=== PATIENT | male | born 2000 | race American Indian/Alaskan Native ===

== ENCOUNTER 2018-11-18 09:58 | Emergency (ER) | payer SELFPAY ==
[2018-11-18 10:03] VITALS: BP 138/61
--- NOTE | 2018-11-18 10:15 | Emergency Department Report ---
ED Dysuria HPI - HPI Chief Complaint: Urogenital-Male Stated Complaint: STD Time Seen by Provider: 11/18/18 10:14 Duration: 2 Days Severity: Mild Symptoms: Dysuria: Yes, Frequency: No, Suprapubic Pain: No, Flank Pain: No, Fever: No, Hematuria: No, Abdominal Pain: No, Previous UTI's: No Other History: 18 YO COMES WITH DYSURIA AND PENILE DISCHARGE. ED Review of Systems ROS: Stated complaint: STD Other details as noted in HPI Comment: All other systems reviewed and negative ED Past Medical Hx - Past Medical History Previous Medical History?: No - Surgical History Past Surgical History?: No - Social History Smoking Status: Current Some Day Smoker Substance Use Type: Marijuana Dysuria Exam - Exam General: Vital signs noted. No distress. Alert and acting appropriately. Exam: Yes Moist Mucous Membranes, No CVA Tenderness, No Abdominal Tenderness, No Rigidity or Guarding ED Course Vital Signs 11/18/18 10:02 Temperature 97.8 F Pulse Rate 65 Respiratory 19 Rate Blood Pressure 138/61 [Left] O2 Sat by Pulse 97 Oximetry ED Medical Decision Making - Medical Decision Making CONCERN FOR STI PT HAS UNPROTECTED SEX EMPIRIC TREATMENT Vital Signs (72 hours) 11/18/18 10:02 Temperature 97.8 F Pulse Rate 65 Respiratory 19 Rate Blood Pressure 138/61 [Left] O2 Sat by Pulse 97 Oximetry Critical care attestation.: If time is entered above; I have spent that time in minutes in the direct care of this critically ill patient, excluding procedure time. ED Disposition Clinical Impression: Concern about STD in male without diagnosis Disposition: DC-01 TO HOME OR SELFCARE Is pt being admited?: No Does the pt Need Aspirin: No Condition: Stable Instructions: Safe Sex (ED) Additional Instructions: DIET TOLERATED MEDS ORDERED TODAY IN ER FOLLOW INSTRUCTIONS ON THE BOTTLE FOLLOW UP PCP WITHIN 48 HOURS TO ENSURE YOU ARE GETTING BETTER ACTIVITY TOLERATED MOTRIN OR TYLENOL FOR PAIN OR FEVER RETURN TO THE ER FOR WORSENING SYMPTOMS NOT RELIEVED BY YOUR MEDICATIONS. WE WILL CALL YOU WITH TEST RESULTS ALL PARTNERS NEED TO BE TREATED. Referrals: [facility] [Outside] - 3-5 Days Time of Disposition: 10:21
[2018-11-18] MEDS ORDERED: XYLOCAINE 1% MPF 5 mL INFILTRATI ONE (10:20)
[2018-11-18] MEDS ORDERED: ROCEPHIN IM ONE (10:20)
[2018-11-18] MEDS ORDERED: ZITHROMAX ONE (10:28)
[2018-11-18] MEDS: ZITHROMAX PO ONE ×2 (10:31→10:32)
[2018-11-18] MEDS ORDERED: ZITHROMAX PO ONE (10:32)
[2018-11-18 11:02] LABS: Bacteria,Urine 1+ /HPF (Negative); Bilirubin,Urine NEG (Negative); Blood,Urine SM (Negative); Color,Urine Yellow (Yellow); Mucus,Urine 3+ /HPF
[2018-11-18 11:03] LABS: WBC,Urine > 182.0 /HPF (0.0-6.0)
== END 2018-11-18 10:50 | disposition home or self-care (01) ==
LOC: ED 09:58
DX: R30.0 Dysuria (principal); F17.200 Nicotine dependence, unspecified, uncomplicated; F12.10 Cannabis abuse, uncomplicated; Z71.1 Person with feared health complaint in whom no diagnosis is made; Z91.018 Allergy to other foods
CPT/HCPCS: 81001; 87591; J0696; 96372

== ENCOUNTER 2019-04-21 01:14 | Emergency (ER) | payer SELFPAY ==
[2019-04-21 01:21] VITALS: BP 139/80
--- NOTE | 2019-04-21 01:41 | Emergency Department Report ---
Chief Complaint: Urogenital-Male Stated Complaint: CHECK FOR STD Time Seen by Provider: 04/21/19 01:34 - HPI History of Present Illness: This is a 18-year-old male nontoxic, well nourished in appearance, no acute signs of distress presents to the ED STD check. Denies any penile discharge. Stated he is asymptomatic. Patient stated that he went out partying and had a sexual intercourse without protection and is now is concerned and wants to be tested. Patient denies any testicular pain or swelling. Patient denies any penile ulcers or lesions. Patient denies any nausea, vomiting, chest pain, shortness of breathe, fever, chills, headache, back pain, numbness, tingling, stiff neck. Patient denies any urinary symptoms. Patient denies any allergies or PMH. - Exam Vital Signs: Vital Signs 04/21/19 04/21/19 01:17 01:21 Temperature 97.3 F L 97.3 F L Pulse Rate 67 62 Respiratory 18 18 Rate Blood Pressure 139/80 139/80 O2 Sat by Pulse 100 100 Oximetry Physical Exam: no abdominal pain. no back pain. no urinary symptoms. no discharge. MSE screening note: Focused history and physical exam performed. Due to findings the following was ordered: ED Medical Decision Making - Medical Decision Making This is a 18-year-old male that presents with nonmedical emergency. Patient is stable and was examined by me. Patient is asymptomatic and denies any symptoms. Patient states he just wants to be tested for STD. I will refer the patient [facility]. At time of discharge, the patient does not seem toxic or ill in appearance. No acute signs of distress noted. Patient agrees to discharge treatment plan of care. No further questions noted by the patient. ED Disposition for MSE Clinical Impression: Possible exposure to STD Disposition: Z-07 MED SCREENING EXAM-LEFT Is pt being admited?: No Does the pt Need Aspirin: No Condition: Stable Instructions: Safe Sex (ED) Additional Instructions: Follow-up with the referrals that you have been provided in this ED stay for STD testing. Referrals: PRIMARY CARE, [Referring] - 3-5 Days ELZA PATEL MD [Staff Physician] - 3-5 Days [facility] [Outside] - 3-5 Days [facility] [Outside] - 3-5 Days
== END 2019-04-21 01:55 | disposition left against medical advice (07) ==
LOC: ED 01:14
DX: Z20.2 Contact with and (suspected) exposure to infections with a predominantly sexual mode of transmission (principal)
CPT/HCPCS: 99281

== ENCOUNTER 2019-12-23 03:48 | Emergency (ER) | payer SELFPAY ==
--- NOTE | 2019-12-23 04:18 | Emergency Department Report ---
ED ENT HPI - General Chief complaint: Dental/Oral Stated complaint: MOUTH/PAIN Time Seen by Provider: 12/23/19 04:11 Source: patient Mode of arrival: Ambulatory Limitations: No Limitations - History of Present Illness MD complaint: tooth pain -: Gradual Location: tooth # Severity: mild, moderate Quality: dull Consistency: constant Improves with: none Worsens with: none Context- Dental: history of dental caries, poor dental care Associated Symptoms: toothache. denies: cough, gum swelling, discharge from ear, rhinorrhea - Related Data Previous Rx's Medication Instructions Recorded Last Taken Type Amoxicillin [Trimox CAP] 500 mg PO Q8H #14 capsule 12/23/19 Unknown Rx Chlorhexidine Mouthwash [Peridex] 15 ml MM BID #1 bottle 12/23/19 Unknown Rx Ketorolac [Toradol] 10 mg PO Q6H PRN #15 tablet 12/23/19 Unknown Rx Lidocaine Viscous 2% 5 ml MM Q3H PRN #120 udc 12/23/19 Unknown Rx Allergies Allergy/AdvReac Type Severity Reaction Status Date / Time green vegetables Allergy Rash Uncoded 11/18/18 09:59 ED Dental HPI - General Chief complaint: Dental/Oral Stated complaint: MOUTH/PAIN Time Seen by Provider: 12/23/19 04:11 Source: patient Mode of arrival: Ambulatory Limitations: No Limitations - Related Data Previous Rx's Medication Instructions Recorded Last Taken Type Amoxicillin [Trimox CAP] 500 mg PO Q8H #14 capsule 12/23/19 Unknown Rx Chlorhexidine Mouthwash [Peridex] 15 ml MM BID #1 bottle 12/23/19 Unknown Rx Ketorolac [Toradol] 10 mg PO Q6H PRN #15 tablet 12/23/19 Unknown Rx Lidocaine Viscous 2% 5 ml MM Q3H PRN #120 udc 12/23/19 Unknown Rx Allergies Allergy/AdvReac Type Severity Reaction Status Date / Time green vegetables Allergy Rash Uncoded 11/18/18 09:59 ED Review of Systems ROS: Stated complaint: MOUTH/PAIN Other details as noted in HPI Comment: All other systems reviewed and negative ED Past Medical Hx - Past Medical History Previous Medical History?: No - Surgical History Past Surgical History?: No - Social History Smoking Status: Current Every Day Smoker - Medications Home Medications: Home Medications Medication Instructions Recorded Confirmed Last Taken Type Amoxicillin [Trimox CAP] 500 mg PO Q8H #14 capsule 12/23/19 Unknown Rx Chlorhexidine Mouthwash [Peridex] 15 ml MM BID #1 bottle 12/23/19 Unknown Rx Ketorolac [Toradol] 10 mg PO Q6H PRN #15 tablet 12/23/19 Unknown Rx Lidocaine Viscous 2% 5 ml MM Q3H PRN #120 udc 12/23/19 Unknown Rx ED Physical Exam - General Limitations: No Limitations General appearance: alert, in no apparent distress - Head Head exam: Present: atraumatic, normocephalic - Eye Eye exam: Present: normal appearance - ENT ENT exam: Present: mucous membranes moist, other (Dental erosion noted to multiple teeth in the upper molar region tooth 1 and tooth #3 has severe erosions and some mild fractures. No abscess is noted) - Neck Neck exam: Present: normal inspection - Respiratory Respiratory exam: Present: normal lung sounds bilaterally. Absent: respiratory distress - Cardiovascular Cardiovascular Exam: Present: regular rate, normal rhythm. Absent: systolic murmur, diastolic murmur, rubs, gallop - GI/Abdominal GI/Abdominal exam: Present: soft, normal bowel sounds - Rectal Rectal exam: Present: deferred - Extremities Exam Extremities exam: Present: normal inspection - Back Exam Back exam: Present: normal inspection - Neurological Exam Neurological exam: Present: alert, oriented X3 - Psychiatric Psychiatric exam: Present: normal affect, normal mood - Skin Skin exam: Present: warm, dry, intact, normal color. Absent: rash ED Course Vital Signs 12/23/19 03:51 Temperature 98.5 F Pulse Rate 74 Respiratory 20 Rate Blood Pressure 130/76 O2 Sat by Pulse 97 Oximetry Critical care attestation.: If time is entered above; I have spent that time in minutes in the direct care of this critically ill patient, excluding procedure time. ED Disposition Clinical Impression: Dentalgia Disposition: DC-01 TO HOME OR SELFCARE Is pt being admited?: No Does the pt Need Aspirin: No Condition: Stable Instructions: Toothache (ED), Dental Caries (ED) Referrals: PRIMARY CARE,MD [Primary Care Provider] - 3-[address] [facility] [Outside] - 3-5 Days
[2019-12-23 04:35] VITALS: BP 122/68
== END 2019-12-23 04:36 | disposition home or self-care (01) ==
LOC: ED 03:48
DX: K08.89 Other specified disorders of teeth and supporting structures (principal); F17.200 Nicotine dependence, unspecified, uncomplicated; Z91.018 Allergy to other foods; Z79.899 Other long term (current) drug therapy
CPT/HCPCS: 99282